=== PATIENT | female | born 1970 | race Caucasian/White ===

== ENCOUNTER 2017-10-22 06:03 | Emergency (ER) | payer OTHER ==
[2017-10-22] MEDS ORDERED: MAG HYDROX/AL HYDROX/SIMETH 30 ML, HYOSCYAMINE ELIXIR 10 ML, CIMETIDINE HCL 300 MG, LID... PO STA ×4 (06:33)
--- NOTE | 2017-10-22 06:34 | ED ---
Medical Decision Making - Medical Decision Making I was asked by nursing staff to provide a GI cocktail for this patient while they were waiting to be seen. Disposition Referrals: Nonstaff,Physician [Primary Care Provider] - 1-2 days
[2017-10-22] MEDS ORDERED: ASPIRIN 81 MG PO STA (07:19)
[2017-10-22] MEDS ORDERED: NITROGLYCERIN OINT 1 INCH/GM PACKET TOPICAL STA (07:19)
--- NOTE | 2017-10-22 07:21 | ED ---
General Adult HPI - General Chief complaint: Abdominal Pain Stated complaint: abd pain Time Seen by Provider: 10/22/17 07:00 Source: patient, family, RN notes reviewed Mode of arrival: ambulatory Limitations: no limitations - History of Present Illness Initial comments: Patient is a pleasant 46-year-old female presenting to the emergency department claiming of chest discomfort onset was around 3:30 or 4 AM. Discomfort felt like cramping and was somewhat severe. No radiation. Patient did have associated significant nausea. No dyspnea. Patient is questionable whether or not she was sweaty. No history of similar symptoms previously. Patient states symptoms significantly improved with GI cocktail. - Related Data Home Medications Medication Instructions Recorded Confirmed Oregano Oil Otc 1 cap PO DAILY 10/22/17 10/22/17 Allergies Allergy/AdvReac Type Severity Reaction Status Date / Time No Known Allergies Allergy Verified 10/22/17 07:38 Review of Systems ROS Statement: Those systems with pertinent positive or pertinent negative responses have been documented in the HPI. ROS Other: All systems not noted in ROS Statement are negative. Constitutional: Denies: fever Eyes: Denies: eye pain ENT: Denies: ear pain Respiratory: Denies: cough, dyspnea Cardiovascular: Reports: chest pain Endocrine: Denies: fatigue Gastrointestinal: Reports: nausea. Denies: abdominal pain Genitourinary: Denies: dysuria Musculoskeletal: Denies: back pain Skin: Denies: rash Neurological: Denies: weakness Past Medical History Past Medical History: No Reported History History of Any Multi-Drug Resistant Organisms: None Reported Past Surgical History: No Surgical Hx Reported Past Psychological History: No Psychological Hx Reported Smoking Status: Never smoker Past Alcohol Use History: None Reported Past Drug Use History: None Reported General Exam Limitations: no limitations General appearance: alert, in no apparent distress Head exam: Present: atraumatic Eye exam: Present: normal appearance, PERRL ENT exam: Present: normal oropharynx Neck exam: Present: normal inspection Respiratory exam: Present: normal lung sounds bilaterally. Absent: chest wall tenderness Cardiovascular Exam: Present: regular rate, normal rhythm Expanded Peripheral pulses: 2+: Radial (R), Radial (L), Dorsalis Pedis (R), Dorsalis Pedis (L) GI/Abdominal exam: Present: soft, normal bowel sounds. Absent: distended, tenderness, guarding, rebound, rigid, pulsatile mass Extremities exam: Present: normal inspection Neurological exam: Present: alert Psychiatric exam: Present: normal affect, normal mood Skin exam: Present: normal color Course Vital Signs 10/22/17 10/22/17 06:06 08:38 Temperature 96.9 F L Pulse Rate 58 L 67 Respiratory 16 18 Rate Blood Pressure 140/88 113/64 O2 Sat by Pulse 99 98 Oximetry EKG Findings - EKG Comments: EKG Findings:: Sinus bradycardia 54. [place] 186. QRS 80. QT 454. QTC 4:30. Normal axis. Poor R-wave progression. No acute ST change. Medical Decision Making - Medical Decision Making Patient reevaluated and resting comfortably in bed. Patient remained symptom- free. Patient and are updated on results. There are explained limitations of tests in the emergency department. They're notified that heart attack has not been ruled out. They're notified that patient may be at risk for heart attack in the very near future or other problems. Patient does demonstrate medical decision making. Despite this patient will leave AGAINST MEDICAL ADVICE. - Lab Data Result diagrams: 10/22/17 07:35 10/22/17 07:35 Lab Results 10/22/17 10/22/17 10/22/17 Range/Units 07:35 07:35 07:35 WBC 8.2 (3.8-10.6) k/uL RBC 4.61 (3.80-5.40) m/uL Hgb 12.9 (11.4-16.0) gm/dL Hct 37.9 (34.0-46.0) % MCV 82.4 (80.0-100.0) fL MCH 27.9 (25.0-35.0) pg MCHC 33.9 (31.0-37.0) g/dL RDW 13.1 (11.5-15.5) % Plt Count 264 (150-450) k/uL Neutrophils % 72 % Lymphocytes % 20 % Monocytes % 4 % Eosinophils % 2 % Basophils % 0 % Neutrophils # 5.9 (1.3-7.7) k/uL Lymphocytes # 1.7 (1.0-4.8) k/uL Monocytes # 0.3 (0-1.0) k/uL Eosinophils # 0.1 (0-0.7) k/uL Basophils # 0.0 (0-0.2) k/uL PT (9.0-12.0) sec INR (<1.2) APTT (22.0-30.0) sec Sodium 139 (137-145) mmol/L Potassium 5.0 (3.5-5.1) mmol/L Chloride 109 H (98-107) mmol/L Carbon Dioxide 22 (22-30) mmol/L Anion Gap 8 mmol/L BUN 16 (7-17) mg/dL Creatinine 0.77 (0.52-1.04) mg/dL Est GFR (MDRD) Af Amer >60 (>60 ml/min/1.73 sqM) Est GFR (MDRD) Non-Af >60 (>60 ml/min/1.73 sqM) Glucose 113 H (74-99) mg/dL Calcium 9.4 (8.4-10.2) mg/dL Total Bilirubin 0.4 (0.2-1.3) mg/dL ALT 27 (9-52) U/L Alkaline Phosphatase 75 (38-126) U/L Total Creatine Kinase 48 (30-135) U/L CK-MB (CK-2) 0.3 (0.0-2.4) ng/mL CK-MB (CK-2) Rel Index 0.6 Troponin I <0.012 (0.000-0.034) ng/mL Total Protein 7.8 (6.3-8.2) g/dL Albumin 4.3 (3.5-5.0) g/dL Amylase 54 (30-110) U/L Lipase 130 (23-300) U/L 10/22/17 Range/Units 07:35 WBC (3.8-10.6) k/uL RBC (3.80-5.40) m/uL Hgb (11.4-16.0) gm/dL Hct (34.0-46.0) % MCV (80.0-100.0) fL MCH (25.0-35.0) pg MCHC (31.0-37.0) g/dL RDW (11.5-15.5) % Plt Count (150-450) k/uL Neutrophils % % Lymphocytes % % Monocytes % % Eosinophils % % Basophils % % Neutrophils # (1.3-7.7) k/uL Lymphocytes # (1.0-4.8) k/uL Monocytes # (0-1.0) k/uL Eosinophils # (0-0.7) k/uL Basophils # (0-0.2) k/uL PT 9.9 (9.0-12.0) sec INR 1.0 (<1.2) APTT 22.8 (22.0-30.0) sec Sodium (137-145) mmol/L Potassium (3.5-5.1) mmol/L Chloride (98-107) mmol/L Carbon Dioxide (22-30) mmol/L Anion Gap mmol/L BUN (7-17) mg/dL Creatinine (0.52-1.04) mg/dL Est GFR (MDRD) Af Amer (>60 ml/min/1.73 sqM) Est GFR (MDRD) Non-Af (>60 ml/min/1.73 sqM) Glucose (74-99) mg/dL Calcium (8.4-10.2) mg/dL Total Bilirubin (0.2-1.3) mg/dL ALT (9-52) U/L Alkaline Phosphatase (38-126) U/L Total Creatine Kinase (30-135) U/L CK-MB (CK-2) (0.0-2.4) ng/mL CK-MB (CK-2) Rel Index Troponin I (0.000-0.034) ng/mL Total Protein (6.3-8.2) g/dL Albumin (3.5-5.0) g/dL Amylase (30-110) U/L Lipase (23-300) U/L - Radiology Data Radiology results: image reviewed (Chest x-ray shows no acute process.) Disposition Clinical Impression: Chest pain Disposition: Left Against Medical Advice Instructions: Chest Pain (ED) Additional Instructions: Please follow-up with primary care physician tomorrow. Aspirin daily. Consider stress test. Return for increased pain, difficulty breathing, sweating , worsening or change in symptoms or other concerns. You're leaving AGAINST MEDICAL ADVICE. Referrals: Jarod Gardiner MD [STAFF PHYSICIAN] - 1-2 days Dread Downey MD [STAFF PHYSICIAN] - 1-2 days Time of Disposition: 09:02
[2017-10-22 07:45] LABS: Basophils % (A) 0 %; CH 28.7; CHCM 34.9; Eosinophils # (A) 0.1 k/uL (0-0.7); Eosinophils % (A) 2 %; HCT 37.9 % (34.0-46.0); HDW 3.26; HGB 12.9 gm/dL (11.4-16.0); Luc # (Auto) 0.13; Luc % (Auto) 2; Lymphocytes # (A) 1.7 k/uL (1.0-4.8); Lymphocytes % (A) 20 %; MCH 27.9 pg (25.0-35.0); MCHC 33.9 g/dL (31.0-37.0); MCV 82.4 fL (80.0-100.0); Mean Platelet Volume 6.5; Monocytes # (A) 0.3 k/uL (0-1.0); Monocytes % (A) 4 %; Neutrophils # (A) 5.9 k/uL (1.3-7.7); Neutrophils % (A) 72 %; RBC 4.61 m/uL (3.80-5.40); RDW 13.1 % (11.5-15.5); WBC 8.2 k/uL (3.8-10.6); WBC (Perox) 7.95
[2017-10-22 07:54] LABS: Partial Thromboplastin Time 22.8 sec (22.0-30.0); Prothrombin Time 9.9 sec (9.0-12.0)
[2017-10-22 07:56] LABS: ALT 27 U/L (9-52); Alkaline Phosphatase 75 U/L (38-126); Amylase 54 U/L (30-110); Anion Gap 8 mmol/L; Blood Urea Nitrogen 16 mg/dL (7-17); Calcium 9.4 mg/dL (8.4-10.2); Carbon Dioxide 22 mmol/L (22-30); Chloride 109 mmol/L (98-107); Glucose 113 mg/dL (74-99); Non-African American GFR(MDRD) >60 (>60 ml/min/1.73 sqM); Sodium 139 mmol/L (137-145); Total Bilirubin 0.4 mg/dL (0.2-1.3); Total Protein 7.8 g/dL (6.3-8.2)
--- NOTE | 2017-10-22 08:01 | XR ---
EXAMINATION TYPE: XR chest 2V DATE OF EXAM: 10/22/2017 CLINICAL HISTORY: Shortness of breath TECHNIQUE: Frontal and lateral views of the chest are obtained. COMPARISON: None FINDINGS: There is no focal air space opacity, pleural effusion, or pneumothorax seen. The cardiac silhouette size is within normal limits. The osseous structures are intact. IMPRESSION: No acute cardiopulmonary process.
[2017-10-22 08:06] LABS: Creatine Kinase 48 U/L (30-135)
[2017-10-22 08:18] LABS: Creatine Kinase MB 0.3 ng/mL (0.0-2.4); Troponin I <0.012 ng/mL (0.000-0.034)
[2017-10-22 09:14] LABS: AST 16 U/L (14-36)
[2017-10-22 10:00] VITALS: BP 126/72; PULSE 65; RESP 16; TEMP 98.1
== END 2017-10-22 10:00 | disposition left against medical advice (07) ==
LOC: EC 06:03
DX: R07.89 Other chest pain (principal); R10.9 Unspecified abdominal pain; R11.0 Nausea; Z79.899 Other long term (current) drug therapy
CPT/HCPCS: 36415; 71020; 80053; 82150; 82550; 82553; 83690; 83735; 84484; 85025; 85610; 85730; 93005; 99284

== ENCOUNTER 2022-06-09 05:06 | Emergency (ER) | payer BC ==
[2022-06-09 05:10] VITALS: TEMP 97
--- NOTE | 2022-06-09 05:21 | ED ---
Abdominal Pain HPI <Soto Barnes - Last Filed: 06/09/22 08:31> - General Source: patient, RN notes reviewed, old records reviewed Mode of arrival: ambulatory Limitations: no limitations - History of Present Illness MD Complaint: abdominal pain -: days(s) Location: diffuse Radiation: epigastric, suprapubic Migration to: epigastric, suprapubic Severity: mild Severity scale (1-10): 3 Quality: aching Consistency: constant Improves With: nothing Worsens With: nothing Associated Symptoms: nausea, vomiting Treatments Prior to Arrival: other (0) <Ronaldo Rich - Last Filed: 06/16/22 04:28> - General Chief Complaint: Abdominal Pain Stated Complaint: Abd Pain Time Seen by Provider: 06/09/22 05:20 - History of Present Illness Initial Comments: This is a 51-year-old female to the emergency department for evaluation. Patient presents today for evaluation of abdominal pain. Patient has no complaints of fever or other complaint. Patient is having abdominal pain. Patient is nursing travel history or sick contacts. Patient has no specific complaints. Just severe pain sudden onset that happened after dinner and awoke from sleep. (Ronaldo Rich) - Related Data Home Medications Medication Instructions Recorded Confirmed Oregano Oil Otc 1 cap PO DAILY 10/22/17 10/22/17 Allergies Allergy/AdvReac Type Severity Reaction Status Date / Time No Known Allergies Allergy Verified 06/09/22 05:09 Review of Systems ROS Other: All systems not noted in ROS Statement are negative. <Soto Barnes - Last Filed: 06/09/22 08:31> ROS Other: All systems not noted in ROS Statement are negative. <Ronaldo Rich - Last Filed: 06/16/22 04:28> ROS Statement: Those systems with pertinent positive or pertinent negative responses have been documented in the HPI. Past Medical History Past Medical History: No Reported History History of Any Multi-Drug Resistant Organisms: None Reported Past Surgical History: No Surgical Hx Reported Past Psychological History: No Psychological Hx Reported Smoking Status: Never smoker Past Alcohol Use History: None Reported Past Drug Use History: None Reported <Ronaldo Rich - Last Filed: 06/16/22 04:28> General Exam Limitations: no limitations General appearance: alert, anxious, in distress Head exam: Present: atraumatic, normocephalic, normal inspection Eye exam: Present: normal appearance, PERRL, EOMI. Absent: scleral icterus, conjunctival injection, periorbital swelling ENT exam: Present: normal exam, mucous membranes moist Neck exam: Present: normal inspection. Absent: tenderness, meningismus, lymphadenopathy Respiratory exam: Present: normal lung sounds bilaterally. Absent: respiratory distress, wheezes, rales, rhonchi, stridor Cardiovascular Exam: Present: regular rate, normal rhythm, normal heart sounds. Absent: systolic murmur, diastolic murmur, rubs, gallop, clicks GI/Abdominal exam: Present: soft, normal bowel sounds. Absent: distended, tenderness, guarding, rebound, rigid Extremities exam: Present: normal inspection, full ROM, normal capillary refill. Absent: tenderness, pedal edema, joint swelling, calf tenderness Back exam: Present: normal inspection Neurological exam: Present: alert, oriented X3, CN II-XII intact Psychiatric exam: Present: normal affect, normal mood Skin exam: Present: warm, dry, intact, normal color. Absent: rash <Ronaldo Rich - Last Filed: 06/16/22 04:28> Course <Ronaldo Rich - Last Filed: 06/16/22 04:28> Vital Signs 06/09/22 06/09/22 06/09/22 05:06 05:49 06:21 Temperature 97.0 F L Pulse Rate 61 52 L 62 Respiratory 20 Rate Blood Pressure 155/82 130/74 95/56 O2 Sat by Pulse 100 100 100 Oximetry 06/09/22 08:05 Temperature Pulse Rate 52 L Respiratory 18 Rate Blood Pressure 108/59 O2 Sat by Pulse 95 Oximetry - Reevaluation(s) Reevaluation #1: 06/09/22 Medical record is reviewed (Ronaldo Rich) Reevaluation #2: 06/09/22 Patient has improved pain control (Ronaldo Rich) Reevaluation #3: 06/09/22 Patient informed results and questions are answered (Ronaldo Rich) Medical Decision Making - Lab Data Result diagrams: 06/09/22 05:35 06/09/22 05:35 <Soto Barnes - Last Filed: 06/09/22 08:31> - Lab Data Result diagrams: 06/09/22 05:35 06/09/22 05:35 - Radiology Data Radiology results: report reviewed (CT of the abdomen and pelvis ultrasound gallbladder positive for gallstones), image reviewed <Ronaldo Rich Blair - Last Filed: 06/16/22 04:28> - Medical Decision Making 51-year-old female who had presented for epigastric, right upper quadrant pain. Patient was evaluated by the previous physician and signed out awaiting ultrasound of the gallbladder. Her symptoms began prior to arrival as epigastric and right upper quadrant pain. Patient feeling much better at the time of evaluation, symptoms resolved. Both CT and ultrasound showing gallstones without signs of acute cholecystitis. Her laboratory testing is unremarkable. She's given strict return parameters but can follow-up as an outpatient with surgery at this point time. (Soto Barnes) - Lab Data Lab Results 06/09/22 06/09/22 06/09/22 Range/Units 05:35 05:35 05:35 WBC 9.4 (3.8-10.6) k/uL RBC 4.77 (3.80-5.40) m/uL Hgb 13.4 (11.4-16.0) gm/dL Hct 39.1 (34.0-46.0) % MCV 82.0 (80.0-100.0) fL MCH 28.1 (25.0-35.0) pg MCHC 34.3 (31.0-37.0) g/dL RDW 13.6 (11.5-15.5) % Plt Count 279 (150-450) k/uL MPV 7.0 Neutrophils % 71 % Lymphocytes % 23 % Monocytes % 3 % Eosinophils % 1 % Basophils % 1 % Neutrophils # 6.7 (1.3-7.7) k/uL Lymphocytes # 2.2 (1.0-4.8) k/uL Monocytes # 0.3 (0-1.0) k/uL Eosinophils # 0.1 (0-0.7) k/uL Basophils # 0.1 (0-0.2) k/uL Sodium 139 (137-145) mmol/L Potassium 4.1 (3.5-5.1) mmol/L Chloride 107 (98-107) mmol/L Carbon Dioxide 23 (22-30) mmol/L Anion Gap 9 mmol/L BUN 18 H (7-17) mg/dL Creatinine 0.71 (0.52-1.04) mg/dL Est GFR (CKD-EPI)AfAm >90 (>60 ml/min/1.73 sqM) Est GFR (CKD-EPI)NonAf >90 (>60 ml/min/1.73 sqM) Glucose 130 H (74-99) mg/dL Plasma Lactic Acid [place] 1.5 (0.7-2.0) mmol/L Calcium 9.4 (8.4-10.2) mg/dL Total Bilirubin 0.4 (0.2-1.3) mg/dL AST 24 (14-36) U/L ALT 20 (4-34) U/L Alkaline Phosphatase 113 (38-126) U/L Total Protein 7.9 (6.3-8.2) g/dL Albumin 4.6 (3.5-5.0) g/dL Amylase 63 (30-110) U/L Lipase 116 (23-300) U/L Urine Color Urine Appearance (Clear) Urine pH (5.0-8.0) Ur Specific [place] (1.001-1.035) Urine Protein (Negative) Urine Glucose (UA) (Negative) Urine Ketones (Negative) Urine Blood (Negative) Urine Nitrite (Negative) Urine Bilirubin (Negative) Urine Urobilinogen (<2.0) mg/dL Ur Leukocyte Esterase (Negative) 06/09/22 Range/Units 08:09 WBC (3.8-10.6) k/uL RBC (3.80-5.40) m/uL Hgb (11.4-16.0) gm/dL Hct (34.0-46.0) % MCV (80.0-100.0) fL MCH (25.0-35.0) pg MCHC (31.0-37.0) g/dL RDW (11.5-15.5) % Plt Count (150-450) k/uL MPV Neutrophils % % Lymphocytes % % Monocytes % % Eosinophils % % Basophils % % Neutrophils # (1.3-7.7) k/uL Lymphocytes # (1.0-4.8) k/uL Monocytes # (0-1.0) k/uL Eosinophils # (0-0.7) k/uL Basophils # (0-0.2) k/uL Sodium (137-145) mmol/L Potassium (3.5-5.1) mmol/L Chloride (98-107) mmol/L Carbon Dioxide (22-30) mmol/L Anion Gap mmol/L BUN (7-17) mg/dL Creatinine (0.52-1.04) mg/dL Est GFR (CKD-EPI)AfAm (>60 ml/min/1.73 sqM) Est GFR (CKD-EPI)NonAf (>60 ml/min/1.73 sqM) Glucose (74-99) mg/dL Plasma Lactic Acid [place] (0.7-2.0) mmol/L Calcium (8.4-10.2) mg/dL Total Bilirubin (0.2-1.3) mg/dL AST (14-36) U/L ALT (4-34) U/L Alkaline Phosphatase (38-126) U/L Total Protein (6.3-8.2) g/dL Albumin (3.5-5.0) g/dL Amylase (30-110) U/L Lipase (23-300) U/L Urine Color Yellow Urine Appearance Clear (Clear) Urine pH 6.0 (5.0-8.0) Ur Specific [place] 1.029 (1.001-1.035) Urine Protein Trace H (Negative) Urine Glucose (UA) Negative (Negative) Urine Ketones Negative (Negative) Urine Blood Negative (Negative) Urine Nitrite Negative (Negative) Urine Bilirubin Negative (Negative) Urine Urobilinogen <2.0 (<2.0) mg/dL Ur Leukocyte Esterase Negative (Negative) Disposition Is patient prescribed a controlled substance at d/c from ED?: No Time of Disposition: 08:32 <Soto Barnes - Last Filed: 06/09/22 08:31> Is patient prescribed a controlled substance at d/c from ED?: No <Ronaldo Rich - Last Filed: 06/16/22 04:28> Clinical Impression: Gallstones, Biliary colic Disposition: HOME SELF-CARE Condition: Good Instructions (If sedation given, give patient instructions): Biliary Colic (ED), Gallstones (ED), Abdominal Pain (ED) Referrals: Brian Pike DO [Primary Care Provider] - 1-2 days Gustabo Dupree MD [STAFF PHYSICIAN] - 1-2 days
[2022-06-09] MEDS ORDERED: HYDROmorphone 1 MG/ML 1 ML SYRINGE IVP STA (05:24)
[2022-06-09] MEDS ORDERED: diphenhydrAMINE 50 MG/ML 1 ML VIAL IVP STA (05:24)
[2022-06-09] MEDS ORDERED: ONDANSETRON 4 MG/2 ML VIAL IVP STA (05:24)
[2022-06-09] MEDS ORDERED: KETOROLAC 15 MG/ML 1 ML VIAL IVP STA (05:24)
[2022-06-09] MEDS ORDERED: PANTOPRAZOLE 40 MG/10 ML VIAL IVP STA (05:37)
[2022-06-09] MEDS ORDERED: SODIUM CHLORIDE 0.9% 1,000 ML IV STA (05:37)
[2022-06-09 05:52] LABS: Basophils # (A) 0.1 k/uL (0-0.2); Basophils % (A) 1 %; Eosinophils # (A) 0.1 k/uL (0-0.7); Eosinophils % (A) 1 %; HCT 39.1 % (34.0-46.0); HGB 13.4 gm/dL (11.4-16.0); Lymphocytes # (A) 2.2 k/uL (1.0-4.8); Lymphocytes % (A) 23 %; MCH 28.1 pg (25.0-35.0); MCHC 34.3 g/dL (31.0-37.0); Monocytes # (A) 0.3 k/uL (0-1.0); Monocytes % (A) 3 %; Neutrophils # (A) 6.7 k/uL (1.3-7.7); Neutrophils % (A) 71 %; Platelet Count 279 k/uL (150-450); RBC 4.77 m/uL (3.80-5.40); RDW 13.6 % (11.5-15.5); WBC 9.4 k/uL (3.8-10.6)
[2022-06-09 06:09] LABS: ALT 20 U/L (4-34); AST 24 U/L (14-36); African American GFR (CKD) >90 (>60 ml/min/1.73 sqM); Albumin 4.6 g/dL (3.5-5.0); Alkaline Phosphatase 113 U/L (38-126); Amylase 63 U/L (30-110); Anion Gap 9 mmol/L; Blood Urea Nitrogen 18 mg/dL (7-17); Calcium 9.4 mg/dL (8.4-10.2); Carbon Dioxide 23 mmol/L (22-30); Chloride 107 mmol/L (98-107); Glucose 130 mg/dL (74-99); Lipase 116 U/L (23-300); Non-African American GFR(CKD) >90 (>60 ml/min/1.73 sqM); Potassium 4.1 mmol/L (3.5-5.1); Sodium 139 mmol/L (137-145); Total Bilirubin 0.4 mg/dL (0.2-1.3); Total Protein 7.9 g/dL (6.3-8.2)
--- NOTE | 2022-06-09 06:36 | CT ---
EXAMINATION TYPE: CT abdomen pelvis wo con DATE OF EXAM: 06/09/2022 HISTORY: abdominal pain not further specified. CT DLP: 858 mGycm. Automated Exposure Control for Dose Reduction was Utilized. TECHNIQUE: CT scan of the abdomen and pelvis is performed without oral or IV contrast. COMPARISON: NONE FINDINGS: Within the limitations of a non-contrast study, the following observations are made. LUNG BASES: Dependent atelectasis. LIVER/GB: Dependent gallstone in gallbladder axial image 38. Another large gallstone inferiorly coron al image 34. Gallbladder has distended margins but there is no surrounding inflammatory change. No bi liary dilatation. PANCREAS: No significant abnormality is seen. SPLEEN: No significant abnormality is seen. ADRENALS: No significant abnormality is seen. KIDNEYS: There is 5 mm nonobstructing lower pole left renal calculus axial image 58. No right-sided n ephrolithiasis. No hydronephrosis or obstructing ureter calculi bilaterally. BOWEL: Few diverticula in the left and sigmoid colon. No CT evidence for acute diverticulitis. Normal -appearing appendix. Small bowel feces sign terminal ileum. No suspicious small bowel dilatation. Fin dings consistent with delayed passage of ingested material to colonic level. No suspicious colonic di latation. GENITAL ORGANS: Anteverted uterus. A few left-sided pelvic phleboliths. LYMPH NODES: No greater than 1cm abdominal or pelvic lymph nodes are appreciated. OSSEOUS STRUCTURES: Moderate to severe disc space narrowing L4-L5 level with moderate spurring . Face t arthropathy lower lumbar levels. Mild to moderate axial joint space loss in both hips. Subtle nonsp ecific sclerotic focus right T12 lesion favored benign. Mild multilevel spurring thoracolumbar spine. OTHER: Moderate-sized fat-containing umbilical hernia. IMPRESSION: Gallstones without CT evidence for acute cholecystitis. No acute findings clearly identif ied.
--- NOTE | 2022-06-09 07:47 | US ---
EXAMINATION TYPE: US gallbladder DATE OF EXAM: 06/09/2022 COMPARISON: CT earlier today CLINICAL HISTORY: pain. RUQ pain EXAM MEASUREMENTS: Liver Length: 15.3 cm Gallbladder Wall: 0.2 cm CBD: 0.8 cm Right Kidney: 9.3 x 5.0 x 5.1 cm Pancreas: wnl Liver: wnl Gallbladder: 2 stones seen measuring 1.5cm and 1.7cm Evidence for sonographic Tabares's sign: no CBD: dilated Right Kidney: wnl 2 large shadowing mobile gallstones redemonstrated. No abnormal wall thickening or surrounding fluid. IMPRESSION: Gallstones redemonstrated. No ultrasound evidence for acute cholecystitis.
[2022-06-09 08:06] VITALS: BP 108/59; PULSE 52; RESP 18
[2022-06-09 08:21] LABS: Appearance,Urine Clear (Clear); Bilirubin,Urine Negative (Negative); Blood,Urine Negative (Negative); Color,Urine Yellow; Glucose,Urine (UA) Negative (Negative); Ketones,Urine Negative (Negative); Leukocyte Esterase,Urine Negative (Negative); Nitrite,Urine Negative (Negative); Protein,Urine Trace (Negative); Specific Gravity,Urine 1.029 (1.001-1.035); Urobilinogen,Urine <2.0 mg/dL (<2.0)
== END 2022-06-09 08:56 | disposition home or self-care (01) ==
LOC: EC 05:06
DX: K80.70 Calculus of gallbladder and bile duct without cholecystitis without obstruction (principal)
CPT/HCPCS: 36415; 80053; 82150; 83605; 83690; 85025; 81003; 76705; 74176; 99284; 96374; 96375; 96361; J1200; J2405; J1170; J1885; C9113